=== PATIENT | female | born 1960 | race Caucasian/White ===

== ENCOUNTER 2020-05-15 21:30 | Outpatient (REF) | payer MEDICAID, SELFPAY ==
[2020-05-15 22:25] LABS: ALT 24 U/L (14-59); AST 20 U/L (15-37); Albumin 3.9 g/dL (3.4-5.0); Alkaline Phosphatase 64 U/L (46-116); Anion Gap 5.9 mmol/L (3-11); BUN 13 mg/dL (7-18); Bilirubin, Total 1.2 mg/dL (0.2-1.0); CO2 30.1 mmol/L (21.0-32.0); CREATININE 0.81 mg/dL (0.55-1.02); Calcium 9.1 mg/dL (8.5-10.1); Calculated LDL 110 mg/dL (<100); Chloride 104 mmol/L (98-107); Cholesterol 205 mg/dL (<200); Glucose 89 mg/dL (74-106); HDL Cholesterol 73 mg/dL (40-60); Potassium 4.2 mmol/L (3.5-5.1); Sodium 140 mmol/L (136-145); Total Protein 8.3 g/dL (6.4-8.2); Triglyceride 111 mg/dL (<150)
== END 2020-05-15 21:50 ==
LOC: NCHCN 21:30
PROVIDERS: Visit Provider Nurse Practitioner Family
DX: Z13.220 Encounter for screening for lipoid disorders (principal); Z13.228 Encounter for screening for other metabolic disorders; Z86.19 Personal history of other infectious and parasitic diseases; Z87.892 Personal history of anaphylaxis
CPT/HCPCS: 80053; 80061

== ENCOUNTER 2023-05-05 12:39 | Outpatient (REF) | payer MEDICAID, SELFPAY ==
--- NOTE | 2023-05-05 11:30 | PAPFT_PTH ---
PATIENT: Edilma Chun LOC: [facility] WITH [facility]#:[id number] AGE/SX: 62/F ROOM: RE05/05/[address]: Jacey Taylor : 1960 BED: DIS: 05/05/2023 SPEC #: [id number] RECD: 05/06/23 13:00 STATUS: GERALD REJose David #: [id number] RUDI: 05/05/23 11:[address]: Jacey Taylor DEPT: [facility] [place] Cytology RECD BY: Mariposa Floyd Tissues: 1 - CX/ENDOCX FOR PAP SMEARS Procedures: PAP THIN PREP/UVM Screening HPV DNA PROBE Comments: [id number]
== END 2023-05-05 12:40 | disposition home or self-care (01) ==
LOC: NCHCN 12:39
PROVIDERS: PCP Nurse Practitioner Family; Visit Provider Nurse Practitioner Family
DX: Z12.4 Encounter for screening for malignant neoplasm of cervix (principal); Z11.51 Encounter for screening for human papillomavirus (HPV)
CPT/HCPCS: 88142; 87624

== ENCOUNTER 2024-03-21 10:06 | Outpatient (REF) | payer MEDICARE, MEDICAID, SELFPAY ==
--- OUTSIDE RECORDS SUMMARY | 2024-03-21 10:09 | XMS_ITS ---
Author Name Unknown Address [address], [place] [phone] Phone Organization Unknown Address [address] [place] [phone] Phone Care Team Providers Care Network Strategist Name Role Phone DEDE Stark Attending Unavailable SONIA Smith Primary Unavailable Social History Type Status Start Date End Date Code Code Syst em Smoking History Never smoker (Never Smoked) 947741821 SNOMED CT Sex Female Hospital Discharge Instructions Should you have any questions prior to discharge, please contact a member of your healthcare team. If you have left the hospital and have any questions, please contact your primary care physician. Reason For Referral No Data Found Allergies and Adverse Reactions Allergy Substance Reaction Severity Start Date Concern Status Co de Code System No Known Drug Allergies Active 788352490 SNOMED-CT Plan of Treatment LAB DRAW 15MIN 05/18/2023 BONE DENSITY DEXA SPINE & HIP 3 US EXTREMITY 05/18/2023 MRI LOWER EXT JOINT W/O CONTRAST 2022 Encounters Encounter Diagnosis Start Date Code Code Sys tem Derangement of meniscus of right knee joint 04/28/2023 [id number] SNOMED-CT Personal Care Team Section Performer Name Performer Role Active Date Inactive Da te
--- OUTSIDE RECORDS SUMMARY | 2024-03-21 10:09 | XMS_ITS ---
Author Name Unknown Address [address] [place], [place] [phone] Phone Organization Unknown Address [address] [place] [phone] Phone Care Team Providers Care Ethylene Plant Helper Name Role Phone DEDE Stark Attending Unavailable SONIA Smith Primary Unavailable Results XR KNEE 3V RT* - Completed: 04/01/2023 10:41 LOINC: [An error prevented this con tent from loading. This incident has been logged.] Social History Type Status Start Date End Date Code Code Syst em Smoking History Never smoker (Never Smoked) 564707485 SNOMED CT Sex Female Hospital Discharge Instructions [...] Code System No Known Drug Allergies Active 278488192 SNOMED-CT Plan of Treatment LAB DRAW 15MIN 05/18/2023 BONE DENSITY DEXA SPINE & HIP 3 US EXTREMITY 05/18/2023 MRI LOWER EXT JOINT W/O CONTRAST 2022 Encounters Encounter Diagnosis Start Date Code Code Sys tem 04/01/2023 [id number] SNOMED-CT Personal Care Team Section Performer Name Performer Role Active Date Inactive Naresh pantoja
--- OUTSIDE RECORDS SUMMARY | 2024-03-21 10:09 | XMS_ITS ---
Author Name Unknown Address [address] [place], [place] [phone] Phone Organization Unknown Address [address] [place] [phone] Phone Care Team Providers Care Toaster Operator Name Role Phone BRENNEN Castillo Attending Unavailable SONIA Smith Primary Unavailable Results MR LOWER EXT ANY JOINT RT WO CONTRAST - Completed: 03/13/2023 12:06 LOINC: [An error prevented this con tent from loading. This incident has been logged.] Social History Type Status Start Date End Date Code Code Syst em Smoking History Never smoker (Never Smoked) 876021485 SNOMED CT Sex Female Hospital Discharge Instructions [...] Code System No Known Drug Allergies Active 789068954 SNOMED-CT Plan of Treatment LAB DRAW 15MIN 05/18/2023 BONE DENSITY DEXA SPINE & HIP 3 US EXTREMITY 05/18/2023 MRI LOWER EXT JOINT W/O CONTRAST 2022 Encounters Encounter Diagnosis Start Date Code Code Sys tem Derangement of posterior hor n of medial meniscus of right knee 03/13/2023 [id number] SNOMED-CT Personal Care Team Section Performer Name Performer Role Active Date Inactive Da te
--- OUTSIDE RECORDS SUMMARY | 2024-03-21 10:10 | XMS_ITS ---
Author Name Unknown Address [address] [place] [phone] Phone Organization Unknown Address [address] [place] [phone] Phone Care Team Providers Care Marble Helper Name Role Phone SONIA Smith Attending Unavailable Results SGOT (AST) - Collect Date/Ti me: 05/18/2023 14:36 [facility] ID: [id number] [address] [place] [address], [address] LOINC: 1920-8 Test Value Unit Reference Range Code Code System Flag SGOT (AST) 20 U/L L=15 H=37 1920-8 LOINC SGPT (ALT) - Collect Date/Ti me: 05/18/2023 14:36 [facility] ID: [id number] [address] [place] [address], [address] LOINC: 1742-6 Test Value Unit Reference Range Code Code System Flag SGPT (ALT) 22 U/L L=12 H=78 1742-6 LOINC BILIRUBIN TOTAL (ADULT)* - C ollect Date/Time: 05/18/2023 14:36 [facility] ID: [id number] [address] [place] [address], [address] LOINC: 1974- Test Value Unit Reference Range Code Code System Flag BILIRUBIN TOTAL 0.8 mg/dL L=0.0 H=1.3 1974- LOINC LEAD WHOLE BLOOD* - Collect Date/Time: 05/18/2023 14:36 [facility] ID: [id number] [address] [place], [place], [id number] LOINC: 30407-1 Test Value Unit Reference Range Code Code System Flag Lead 2.5 <2.0 H MERCURY WHOLE BLOOD QUANTITA TIVE* - Collect Date/Time: 05/18/2023 14:36 [facility] ID: [id number] [address] [place], [place], [id number] LOINC: 5685-3 Test Value Unit Reference Range Code Code System Flag Mercury, B 2 <10 5685-3 LOINC BILIRUBIN DIRECT* - Collect Date/Time: 05/18/2023 14:36 [facility] ID: [id number] [address] [place] [address], [address] LOINC: 1971-1 Test Value Unit Reference Range Code Code System Flag BILIRUBIN DIRECT 0.10 mg/dL L=0.00 H=0.50 1971- LOINC Social History Type Status Start Date End Date Code Code Syst em Smoking History Never smoker (Never Smoked) 975861281 SNOMED CT Sex Female Hospital Discharge Instructions [...] Code System No Known Drug Allergies Active 420957585 SNOMED-CT Plan of Treatment LAB DRAW 15MIN 05/18/2023 BONE DENSITY DEXA SPINE & HIP 3 US EXTREMITY 05/18/2023 MRI LOWER EXT JOINT W/O CONTRAST 2022 Encounters Encounter Diagnosis Start Date Code Code Sys tem Contact with and (suspected) exposure to lead 05/18/20 23 SNOMED-CT Personal Care Team Section Performer Name Performer Role Active Date Inactive Da te
--- OUTSIDE RECORDS SUMMARY | 2024-03-21 10:10 | XMS_ITS ---
Author Name Unknown Address [address] [place], [place] [phone] Phone Organization Unknown Address [address] [place] [phone] Phone Care Team Providers Care Woodwork Salvage Inspector Name Role Phone DEDE Stark Attending Unavailable SONIA Smith Primary Unavailable Results US EXTREMITY COMPLETE NONVAS CULAR - Completed: 05/18/2023 15:11 LOINC: [An error prevented this con tent from loading. This incident has been logged.] Social History Type Status Start Date End Date Code Code Syst em Smoking History Never smoker (Never Smoked) 280048969 SNOMED CT Sex Female Hospital Discharge Instructions [...] Code System No Known Drug Allergies Active 990773710 SNOMED-CT Plan of Treatment LAB DRAW 15MIN 05/18/2023 BONE DENSITY DEXA SPINE & HIP 3 US EXTREMITY 05/18/2023 MRI LOWER EXT JOINT W/O CONTRAST 2022 Encounters Encounter Diagnosis Start Date Code Code Sys tem Synovial cyst of popliteal space [[place]], right knee 0 05/18/2023 SNOMED-CT Personal Care Team Section Performer Name Performer Role Active Date Inactive Da te
--- OUTSIDE RECORDS SUMMARY | 2024-03-21 10:10 | XMS_ITS ---
Author Name Unknown Address [address] [place], [place] [phone] Phone Organization Unknown Address [address] [place] [phone] Phone Care Team Providers Care Boiler/Chiller Technician Name Role Phone SIMRAN Hartman Attending Unavailable SONIA Smith Primary Unavailable Social History Type Status Start Date End Date Code Code Syst em Smoking History Never smoker (Never Smoked) 201659062 SNOMED CT Sex Female Hospital Discharge Instructions [...] Code System No Known Drug Allergies Active 538029812 SNOMED-CT Plan of Treatment LAB DRAW 15MIN 05/18/2023 BONE DENSITY DEXA SPINE & HIP 3 US EXTREMITY 05/18/2023 MRI LOWER EXT JOINT W/O CONTRAST 2022 Encounters Encounter Diagnosis Start Date Code Code Sys tem Rupture of anterior cruciate ligament 05/19/2023 239 103866 SNOMED-CT Personal Care Team Section Performer Name Performer Role Active Date Inactive Da te
--- OUTSIDE RECORDS SUMMARY | 2024-03-21 10:11 | XMS_ITS ---
Author Name Unknown Address [address] [place], [place] [phone] Phone Organization Unknown Address [address] [place] [phone] Phone Care Team Providers Care Museum Exhibit Designer Name Role Phone BRENNEN Castillo Attending Unavailable SONIA Smith Primary Unavailable Results BD DXA BONE DENSITY HIP AND SPINE - Completed: 06/17/2023 12:20 LOINC: [An error prevented this con tent from loading. This incident has been logged.] Social History Type Status Start Date End Date Code Code Syst em Smoking History Never smoker (Never Smoked) 253757602 SNOMED CT Sex Female Hospital Discharge Instructions [...] Code System No Known Drug Allergies Active 624482701 SNOMED-CT Plan of Treatment LAB DRAW 15MIN 05/18/2023 BONE DENSITY DEXA SPINE & HIP 3 US EXTREMITY 05/18/2023 MRI LOWER EXT JOINT W/O CONTRAST 2022 Encounters Encounter Diagnosis Start Date Code Code Sys tem Encounter for screening for osteoporosis 06/17/2023 SNOMED-CT Personal Care Team Section Performer Name Performer Role Active Date Inactive Da kit
--- OUTSIDE RECORDS SUMMARY | 2024-03-21 10:11 | XMS_ITS ---
Author Name Unknown Address [address] [place], [place] [phone] Phone Organization Unknown Address [address] [place] [phone] Phone Care Team Providers Care Railway Patrol Officer Name Role Phone SIMRAN Hartman Attending Unavailable MELINA Bower CRNA Unavailable ZANE Stark Physician Photographic Equipment Inspector Bernie Smith Primary Unavailable Social History Type Status Start Date End Date Code Code Syst em Smoking History Never smoker (Never Smoked) 530175537 SNOMED CT Sex Female Vital Signs Vital Sign Value Unit Powell Value Powell Unit Date/Time Recent/Initial? Code Code System Body Mass Index 22.59 kg/m2 05/26/2023 11:50 Initial 87688 -5 LOINC Systolic Blood Pressure 129 mm[Hg] 05/27/2023 11:26 Initial 8480- 6 LOINC Diastolic Blood Pressure 82 mm[Hg] 05/27/2023 11:26 Initial 8462- 4 LOINC Body Surface Area 1.73 m2 05/26/2023 11:50 Initial 3140- 1 LOINC Height 168.275 0 cm 66.25 in 05/26/2023 11:50 Initial 8302- 2 LOINC O2 Saturation 98 % 2022 11:26 Initial 54742 -5 LOINC Pulse 56.0 /min 05/27/2023 11:26 Initial 8867- 4 LOINC Respiration 11 /min 05/27/20 11:26 Initial 9279- 1 LOINC Temperature 36.0 Estela 96.8 F 05/27/20 11:26 Initial 8310- 5 LOINC Weight 63.96 kg 141.00 lbs 05/26/2023 11:50 Initial 78053 -7 [facility] Hospital Discharge Instructions Should you have any questions prior to discharge, please contact a member of your healthcare team. If you have left the hospital and have any questions, please contact your primary care physician. Reason For Referral No Data Found Procedures Procedure Name Date Status Code Code Simonee m Arthrs Knee w/Meniscectomy Med&Lat w/Shaving 05/27/2023 co mpleted 84594 CPT Anesthesia, Open/Surg Arthro scopic Proc, Knee Joint; NOS 05/27/2023 completed 56608 CPT Allergies and Adverse Reactions Allergy Substance Reaction Severity Start Date Concern Status Co de Code System No Known Drug Allergies Active 732898647 SNOMED-CT Plan of Treatment LAB DRAW 15MIN 05/18/2023 BONE DENSITY DEXA SPINE & HIP 3 US EXTREMITY 05/18/2023 MRI LOWER EXT JOINT W/O CONTRAST 2022 Encounters Encounter Diagnosis Start Date Code Code Sys tem Other tear of medial meniscu s, current injury, right knee, initial encounter 05/27/2023 SNOMED-CT Personal Care Team Section Performer Name Performer Role Active Date Inactive Da kit
--- OUTSIDE RECORDS SUMMARY | 2024-03-21 10:11 | XMS_ITS ---
Author Name Unknown Address [address] [place], [place] [phone] Phone Organization Unknown Address [address] [place] [phone] Phone Care Team Providers Care Head Doffer Name Role Phone SIMRAN Hartman Attending Unavailable Social History Type Status Start Date End Date Code Code Syst em Smoking History Never smoker (Never Smoked) 740711057 SNOMED CT Sex Female Hospital Discharge Instructions Should you have any questions prior to discharge, please contact a member of your healthcare team. If you have left the hospital and have any questions, please contact your primary care physician. Reason For Referral No Data Found Procedures Procedure Name Date Status Code Code Syste m Arthrs Knee w/Meniscectomy Med&Lat w/Shaving 05/27/2023 co mpleted 48703 CPT Allergies and Adverse Reactions Allergy Substance Reaction Severity Start Date Concern Status Co de Code System No Known Drug Allergies Active 771679151 SNOMED-CT Plan of Treatment LAB DRAW 15MIN [...]
--- OUTSIDE RECORDS SUMMARY | 2024-03-21 10:11 | XMS_ITS ---
Author Name Unknown Address [address] [place], [place] [phone] Phone Organization Unknown Address [address] [place] [phone] Phone Care Team Providers Care Woodworker Helper Name Role Phone SIMRAN Hartman Attending Unavailable SONIA Smith Primary Unavailable Social History Type Status Start Date End Date Code Code Syst em Smoking History Never smoker (Never Smoked) 910811154 SNOMED CT Sex Female Hospital Discharge Instructions [...] Code System No Known Drug Allergies Active 700411375 SNOMED-CT Plan of Treatment LAB DRAW 15MIN 05/18/2023 BONE DENSITY DEXA SPINE & HIP 3 US EXTREMITY 05/18/2023 MRI LOWER EXT JOINT W/O CONTRAST 2022 Encounters Encounter Diagnosis Start Date Code Code Sys tem 06/30/2023 [id number] SNOMED-CT Personal Care Team Section Performer Name Performer Role Active Date Inactive Da te
--- OUTSIDE RECORDS SUMMARY | 2024-03-21 10:12 | XMS_ITS | Continuity of Care Document ---
Author Name Unknown Organization [facility] Address [address] [place] [address] Care Team Providers Care Sheet Metal Technician Name Role Phone Jacey Taylor Primary Care Physician [phone] Encounter [facility] Date(s): 02/28/23 - 02/28/[address] [address] Discharge Disposition: Home or Self Care Attending Physician: Ivan Pedroza MD Admitting Physician: Ivan Pedroza MD Allergies, Adverse Reactions, Alerts No Known Medication Allergies Assessment and Plan Extracted from: Title:Clinical Document Author:Donnie Luis Date:02/28/23 Diagnosis: Ankle injury - Mi nor Comment: Diagnosis: Knee injury - Minor Comment: Functional Status 02/28/23 Family Member Travel History No recent t ravel Recent Travel History No recent travel Other exposure to Infectious Disease Non e Vital Signs Most recent to oldest [Reference Range]: 1 Temperature Temporal Artery [36-38 Deg C ] 36.8 Deg C (02/28/23 4:03 PM) Peripheral Pulse Rate [60-100 bpm] 73 bp m (02/28/23 4:03 PM) Respiratory Rate [12-24 br/min] 18 br/mi n (02/28/23 4:03 PM) Blood Pressure [90-140/60-90 mmHg] 143/8 5mmHg *HI* (02/28/23 4:03 PM) Weight Dosing 64.00 kg (02/28/23 4:11 PM) Weight Estimated 64.00 kg (02/28/23 4:03 PM) Height/Length Dosing 170.000 cm (02/28/23 4:11 PM) Height/Length Estimated 170.000 cm (02/28/23 4:03 PM) Social History Social History Type Response Tobacco Never tobacco user T obacco Use:. Sex Hospital Discharge Instructions Patient Education 02/28/2023 16:35:46 Meniscus Tear, Phase I Rehab Meniscus Tear, Phase I Rehab Ask your health care provider which exercises are safe for you. Do exercises exactly as told by your health care provider and adjust them as directed. It is normal to feel mild stretching, pulling, tightness, or discomfort as you do these exercises. Stop right away if you feel sudden pain or your pain gets worse. Do not begin these exercises until told by your health care provider. Stretching and hvlgl-jl-skxazt exercises These exercises warm up your muscles and joints and improve the movement and flexibility of your knee. These exercises also help to relieve pain and stiffness. Active knee flexion, supine 1. Lie on your back (supine position) with both knees straight. If this causes back discomfort, bend your uninjured knee so your foot is flat on the floor. 2. Slowly slide your left / right heel toward your buttocks (active) until you feel a gentle stretch in the front of your knee or thigh (flexion). Stop if you have pain. 3. Hold this position for seconds. 4. Slowly slide your left / right heel back to the starting position. Repeat times. Complete this exercise times a day. Passive knee extension, sitting 1. Sit with your left / right heel propped up on a chair, a coffee table, or a footstool. Do not have anything under your knee to support it. 2. Without using any effort (passive), allow your leg muscles to relax, letting gravity straighten out your knee (extension). Do not let your knee turn inward. You should feel a stretch behind your left / right knee. 3. If told by your health care provider, deepen the stretch by placing a lb / kg weight on your thigh, just above your kneecap. 4. Hold this position for seconds. Repeat times. Complete this exercise times a day. Strengthening exercises These exercises build strength and endurance in your knee. Endurance is the ability to use your muscles for a long time, even after they get tired. Quadriceps, isometric 1. Lie on your back with your left / right leg extended and your other knee bent. Put a rolled towel or a small pillow under your left / right knee if told by your health care provider. 2. Without moving your knee joint (isometric), slowly tense the muscles in the front of your left /right thigh (quadriceps). You should see your kneecap slide up toward your hip or see increased dimpling just above the knee. This motion will push the back of your knee toward the floor. 3. For seconds, hold the muscle as tight as you can without increasing your pain. 4. Relax the muscles slowly and completely. Repeat times. Complete this exercise times a day. Straight leg raises, supine This exercise strengthens the muscles in the front of your thigh (quadriceps). 1. Lie on your back (supine position) with your left / right leg extended and your other knee bent. 2. Tense the muscles in the front of your left / right thigh. You should see your kneecap slide up toward your hip or see increased dimpling just above the knee. 3. Keep these muscles tight as you raise your leg 4???6 inches (10???15 cm) off the floor. Do not let your knee bend. 4. Hold this position for seconds. 5. Keep these muscles tense as you lower your leg. 6. Relax the muscles slowly and completely after each repetition. Repeat times. Complete this exercise times a day. Hamstring curls 1. On the floor or a bed, lie on your abdomen with your legs straight. Put a folded towel or a small pillow under your left / right thigh, just above your kneecap. 2. Slowly bend your left / right knee as far as you can without pain. Keep your hips flat against the floor or bed. 3. Hold this position for seconds. 4. Slowly lower your leg to the starting position. Repeat times. Complete this exercise times a day. This information is not intended to replace advice given to you by your health care provider. Make sure you discuss any questions you have with your health care provider. Document Revised: 01/21/2021 Document Reviewed: 01/21/2021 [employer] Patient Education ?? 2021 [employer] 02/28/2023 16:35:41 Meniscus Tear Meniscus Tear A meniscus tear is a knee injury that happens when a piece of the meniscus is torn. The meniscus ed thick, rubbery, wedge-shaped piece of cartilage in the knee. Each knee has two menisci sitting between the upper bone (femur) and lower bone (tibia) that form the knee joint. Each meniscus acts as a shock absorber for the knee. A torn meniscus is a common knee injury, ranging from mild to severe. Surgery may be needed to repair a severe tear. What are the causes? This condition may be caused by kneeling, squatting, twisting, or pivoting movements. Sports-related injuries are the most common cause, often resulting from: ??? Running and stopping suddenly. ??? Changing direction. ??? Being tackled or knocked off your feet. ??? Lifting or carrying heavy weights. As people get older, their menisci get thinner and weaker. Tears can happen more easily in older people, for example, when climbing stairs. What increases the risk? You are more likely to develop this condition if you: ??? Play contact sports. ??? Have a job that requires kneeling or squatting. ??? Are male. ??? Are over 40 years old. What are the signs or symptoms? Symptoms of this condition include: ??? Knee pain, especially at the side of the knee joint. You may feel pain immediately after injury, or hear a pop and feel pain later. ??? A feeling that your knee is clicking, catching, locking, or giving way (weakness, instability). ??? Not being able to fully bend or extend your knee. ??? Bruising or swelling in your knee. How is this diagnosed? This condition may be diagnosed based on your symptoms and a physical exam. You may also have tests, such as: ??? X-rays. ??? MRI. ??? Arthroscopy. This is a procedure to look inside your knee with a narrow surgical telescope. You may be referred to a knee specialist (orthopedic surgeon). How is this treated? Treatment for this injury depends on the severity of the tear. Treatment for a mild tear may include: ??? Rest. ??? Medicine to reduce pain and swelling, usually a nonsteroidal anti- inflammatory drug (NSAID), like ibuprofen. ??? A knee brace, sleeve, or wrap. ??? Using crutches or a walker to keep weight off your knee and help with walking. ??? Exercises to strengthen your knee (physical therapy). You may need surgery if you have a severe tear or if other treatments fail. Follow these instructions at home: If you have a brace, sleeve, or wrap: ??? Wear it, as told by your health care provider. Remove it, only as told by your health care provider. ??? Loosen the brace, sleeve, or wrap if your toes tingle, become numb, or turn cold and blue. ??? Keep the brace, sleeve, or wrap clean. ??? If the brace, sleeve, or wrap is not waterproof: ??? Do not let it get wet. ??? Cover it with a watertight covering when you take a bath or shower. Managing pain, stiffness, and swelling ??? Take uznm-ihx-evbwyeu and prescription medicines only as told by your health care provider. ??? If directed, put ice on your knee. To do this: ??? If you have a removable brace, sleeve, or wrap, remove it as told by your health care provider. ??? Put ice in a plastic bag. ??? Place a towel between your skin and the bag. ??? Leave the ice on for 20 minutes, 2???3 times per day. ??? Remove the ice if your skin turns bright red. This is very important. If you cannot feel pain, heat, or cold, you have a greater risk of damage to the area. ??? Move your toes often to reduce stiffness and swelling. ??? Raise (elevate) the injured area above the level of your heart while you are sitting or lying down. Activity ??? Do not use the injured limb to support your body weight until your health care provider says that you can. Use crutches or a walker as told by your health care provider. ??? Return to your normal activities as told by your health care provider. Ask your health care provider what activities are safe for you. ??? Perform ddlbd-zd-iudghe exercises only as told by your health care provider. ??? Begin doing exercises to strengthen your knee and leg muscles only as told by your health care provider. After you recover, your health care provider may recommend these exercises to help preventanother injury. General instructions ??? Use a knee brace, sleeve, or wrap as told by your health care provider. ??? Ask your health care provider when it is safe to drive if you have a brace, sleeve, or wrap on your knee. ??? Do not use any products that contain nicotine or tobacco, such as cigarettes, e-cigarettes, andchewing tobacco. If you need help quitting, ask your health care provider. ??? Ask your health care provider if the medicine prescribed to you: ??? Requires you to avoid driving or using heavy machinery. ??? Can cause constipation. You may need to take these actions to prevent or treat constipation: ??? Drink enough fluid to keep your urine pale yellow. ??? Take zxcb-ahz-gynnlpy or prescription medicines. ??? Eat foods that are high in fiber, such as beans, whole grains, and fresh fruits and vegetables. ??? Limit foods that are high in fat and processed sugars, such as fried or sweet foods. ??? Keep all follow-up visits. This is important. Contact a health care provider if: ??? You have a fever. ??? Your knee becomes red, tender, or swollen. ??? Your pain medicine is not controlling your pain. ??? Your symptoms get worse or do not improve after 2 weeks of home care. Summary ??? A meniscus tear is a knee injury that happens when a piece of the meniscus is torn. ??? Treatment for this injury depends on the severity of the tear. You may need surgery if you havea severe tear or if other treatments fail. ??? Rest, ice, and raise (elevate) your injured knee, as told by your health care provider. This will help lessen pain and swelling. ??? Contact a health care provider if you have new symptoms, your symptoms worsen, or they do not improve after 2 weeks of home care. ??? Keep all follow-up visits. This is important. This information is not intended to replace advice given to you by your health care provider. Make sure you discuss any questions you have with your health care provider. Document Revised: 01/31/2021 Document Reviewed: 01/31/2021 [employer] Patient Education ?? 2021 [employer]. Physician Emergency department Note * Ivan Pedroza MD: PERFORM Event Display: ED Note Physician Authored Date: [id number] SOULEYMANE BILLINGSLEY :1960 Age:62 years Sex:Female Visit Date:02/28/2023 Primary Care Physician: Jacey Taylor NP Basic Information Time Seen: Ivan Pedroza MD / 02/28/2023 16:14 [place], Stood, fell and twisted with impact on rigtht knee heard big crunch. Limping into triage with right knee splinted, +flexion and extend poor weight. Painglobally around knee. Lateral pain over left ankle. History Of Present Illness: Presenting concern is knee injury.?? Patient was hiking and fell with injury to the left foot.?? She jumped up and then injured her right knee. ??She felt her knee give way.?? [place]using [place]. Review of Systems: Review of systems is negative for other injuries. Physical Exam Vitals & Measurements T:??36.8?C ??(Temporal Artery)?? HR:??73??(Peripheral)?? RR:??18?? BP:??143/85?? SpO2:??99%?? HT:??170.000??cm?? WT:??64.00??kg??(Estimated)?? Pain Score:??4?? Right knee has no ligamentous??tenderness.?? Knee is stable to stress in all dimensions.?? There isfocal tenderness behind the??fibula.?? There is mild knee effusion. Medical Decision Making: Complexity is low. ??Data complexity is low. ??Management risk are low.?? [facility] decision making 48310. Procedure No Qualifying Data Assessment/Plan Ordered: Crutches, 02/28/23 17:36:00 EDT, Stop date 02/28/23 17:36:00 EDT, 02/28/23 17:36:00 EDT Knee Immobilizer Application, 02/28/23 17:36:00 EDT, Stop date 02/28/23 17:36:00 EDT, 02/28/23 17:36:00 EDT Discharge diagnosis is meniscus injury. Patient Education Meniscus Tear, Phase I Rehab Meniscus Tear Problem List/Past Medical History Ongoing No qualifying data Historical No qualifying data Medication Administration Given ibuprofen, 600 mg, Oral Tylenol, 1000 mg, Oral Allergies No Known Medication Allergies Social History Electronic Cigarette/Vaping Electronic Cigarette Use: Never. Tobacco Never tobacco user Tobacco Use:. Electronically Signed on 02/28/23 05:37 PM Ivan Pedroza MD Emergency department Discharge instructions * Ivan Pedroza MD: PERFORM Event Display: ED Discharge Information Authored Date: [id number] SOULEYMANE BILLINGSLEY :1960 Age:62 years Sex:Female Visit Date:02/28/2023 Primary Care Physician: Jacey Taylor CHARGE HISTOTECHNOLOGIST Discharge Instructions We would like to thank you for allowing us to assist you with your healthcare needs. The following includes patient education materials and information regarding your injury/illness. Discharge Vitals Temperature??(Temporal Artery) 98.2 ??F (36.8 ??C) Heart Rate??(Peripheral) 73 Respiratory Rate?? 18 Blood Pressure?? 143/85?? Height?? 66.93 in (170.000 cm) Weight??(Estimated) 141.12 lb (64.00 kg) Allergies No Known Medication Allergies What to Do Next Instructions from Your Care Team You have an injury to??a cartilage??(meniscus)??in your??right knee.?? Apply ice is much as possible for the next??48 hours.?? Wear knee immobilizer when you are up.?? Use crutches??to minimize any weightbearing for the next 48 hours.?? You do not need to wear the immobilizer??in bed.?? After 2 days gradually increase activity??with some??minor weightbearing and increase as tolerated. ?? If failure to??have a??workable??knee that??allows you to go up and down stairs without discomfort??then follow-up with your primary care provider for consideration of??further imaging. ?? Ivan Pedroza MD You were treated today on an emergency basis; it may be hall to contact your primary care provider to notify them of your visit today. You may have been referred to your regular doctor or a specialist, please follow up as instructed. If your condition worsens or you can't get in to see the doctor, contact the Emergency Department. Education Materials Meniscus Tear, Phase I Rehab Ask your health care provider which exercises are safe for you. Do exercises exactly as told by your health care provider and adjust them as directed. It is normal to feel mild stretching, pulling, tightness, or discomfort as you do these exercises. Stop right away if you feel sudden pain or your pain gets worse. Do not begin these exercises until told by your health care provider. Stretching and rbpdh-dc-mulzsl exercises These exercises warm up your muscles and joints and improve the movement and flexibility of your knee. These exercises also help to relieve pain and stiffness. Active knee flexion, supine 1.?? Lie on your back (supine position) with both knees straight. If this causes back discomfort, bend your uninjured knee so your foot is flat on the floor. 2.?? Slowly slide your left / right heel toward your buttocks (active) until you feel a gentle stretch in the front of your knee or thigh (flexion). Stop if you have pain. 3.?? Hold this position for seconds. 4.?? Slowly slide your left / right heel back to the starting position. Repeat times. Complete this exercise times a day. Passive knee extension, sitting 1.?? Sit with your left / right heel propped up on a chair, a coffee table, or a footstool. Do not have anything under your knee to support it. 2.?? Without using any effort (passive), allow your leg muscles to relax, letting gravity straighten outyour knee (extension). Do not let your knee turn inward. You should feel a stretch behind your left/ right knee. 3.?? If told by your health care provider, deepen the stretch by placing a lb / kg weight on your thigh, just above your kneecap. 4.?? Hold this position for seconds. Repeat times. Complete this exercise times a day. Strengthening exercises These exercises build strength and endurance in your knee. Endurance is the ability to use your muscles for a long time, even after they get tired. Quadriceps, isometric 1.?? Lie on your back with your left / right leg extended and your other knee bent. Put a rolled towel or a small pillow under your left / right knee if told by your health care provider. 2.?? Without moving your knee joint (isometric), slowly tense the muscles in the front of your left / right thigh (quadriceps). You should see your kneecap slide up toward your hip or see increased dimpling just above the knee. This motion will push the back of your knee toward the floor. 3.?? For seconds, hold the muscle as tight as you can without increasing your pain. 4.?? Relax the muscles slowly and completely. Repeat times. Complete this exercise times a day. Straight leg raises, supine This exercise strengthens the muscles in the front of your thigh (quadriceps). 1.?? Lie on your back (supine position) with your left / right leg extended and your other knee bent. 2.?? Tense the muscles in the front of your left / right thigh. You should see your kneecap slide up toward your hip or see increased dimpling just above the knee. 3.?? Keep these muscles tight as you raise your leg 4???6 inches (10???15 cm) off the floor. Do not let your knee bend. 4.?? Hold this position for seconds. 5.?? Keep these muscles tense as you lower your leg. 6.?? Relax the muscles slowly and completely after each repetition. Repeat times. Complete this exercise times a day. Hamstring curls 1.?? On the floor or a bed, lie on your abdomen with your legs straight. Put a folded towel or a small pillow under your left / right thigh, just above your kneecap. 2.?? Slowly bend your left / right knee as far as you can without pain. Keep your hips flat against the floor or bed. 3.?? Hold this position for seconds. 4.?? Slowly lower your leg to the starting position. Repeat times. Complete this exercise times a day. This information is not intended to replace advice given to you by your health care provider. Make sure you discuss any questions you have with your health care provider. Document Revised: 01/21/2021 Document Reviewed: 01/21/2021 Else[employer] Patient Education ?? 2021 [employer] Meniscus Tear A meniscus tear is a knee injury that happens when a piece of the meniscus is torn. The meniscus ed thick, rubbery, wedge-shaped piece of cartilage in the knee. Each knee has two menisci sitting between the upper bone (femur) and lower bone (tibia) that form the knee joint. Each meniscus acts as a shock absorber for the knee. A torn meniscus is a common knee injury, ranging from mild to severe. Surgery may be needed to repair a severe tear. What are the causes? This condition may be caused by kneeling, squatting, twisting, or pivoting movements. Sports-related injuries are the most common cause, often resulting from: ? Running and stopping suddenly. ? Changing direction. ? Being tackled or knocked off your feet. ? Lifting or carrying heavy weights. As people get older, their menisci get thinner and weaker. Tears can happen more easily in older people, for example, when climbing stairs. What increases the risk? You are more likely to develop this condition if you: ? Play contact sports. ? Have a job that requires kneeling or squatting. ? Are male. ? Are over 40 years old. What are the signs or symptoms? Symptoms of this condition include: ? Knee pain, especially at the side of the knee joint. You may feel pain immediately after injury, orhear a pop and feel pain later. ? A feeling that your knee is clicking, catching, locking, or giving way (weakness, instability). ? Not being able to fully bend or extend your knee. ? Bruising or swelling in your knee. How is this diagnosed? This condition may be diagnosed based on your symptoms and a physical exam. You may also have tests, such as: ? X-rays. ? MRI. ? Arthroscopy. This is a procedure to look inside your knee with a narrow surgical telescope. You may be referred to a knee specialist (orthopedic surgeon). How is this treated? Treatment for this injury depends on the severity of the tear. Treatment for a mild tear may include: ? Rest. ? Medicine to reduce pain and swelling, usually a nonsteroidal anti-inflammatory drug (NSAID), like ibuprofen. ? A knee brace, sleeve, or wrap. ? Using crutches or a walker to keep weight off your knee and help with walking. ? Exercises to strengthen your knee (physical therapy). You may need surgery if you have a severe tear or if other treatments fail. Follow these instructions at home: If you have a brace, sleeve, or wrap: ? Wear it, as told by your health care provider. Remove it, only as told by your health care provider. ? Loosen the brace, sleeve, or wrap if your toes tingle, become numb, or turn cold and blue. ? Keep the brace, sleeve, or wrap clean. ? If the brace, sleeve, or wrap is not waterproof: ? Do not let it get wet. ? Cover it with a watertight covering when you take a bath or shower. Managing pain, stiffness, and swelling ? Take fewm-rhs-eedgxkp and prescription medicines only as told by your health care provider. ? If directed, put ice on your knee. To do this: ? If you have a removable brace, sleeve, or wrap, remove it as told by your health care provider. ? Put ice in a plastic bag. ? Place a towel between your skin and the bag. ? Leave the ice on for 20 minutes, 2???3 times per day. ? Remove the ice if your skin turns bright red. This is very important. If you cannot feel pain, heat, or cold, you have a greater risk of damage to the area. ? Move your toes often to reduce stiffness and swelling. ? Raise (elevate) the injured area above the level of your heart while you are sitting or lying down. Activity ? Do not use the injured limb to support your body weight until your health care provider says that you can. Use crutches or a walker as told by your health care provider. ? Return to your normal activities as told by your health care provider. Ask your health care provider what activities are safe for you. ? Perform cgsrf-ij-fbcmzh exercises only as told by your health care provider. ? Begin doing exercises to strengthen your knee and leg muscles only as told by your health care provider. After you recover, your health care provider may recommend these exercises to help prevent another injury. General instructions ? Use a knee brace, sleeve, or wrap as told by your health care provider. ? Ask your health care provider when it is safe to drive if you have a brace, sleeve, or wrap on yourknee. ? Do not use any products that contain nicotine or tobacco, such as cigarettes, e- cigarettes, and chewing tobacco. If you need help quitting, ask your health care provider. ? Ask your health care provider if the medicine prescribed to you: ? Requires you to avoid driving or using heavy machinery. ? Can cause constipation. You may need to take these actions to prevent or treat constipation: ? Drink enough fluid to keep your urine pale yellow. ? Take [id number] or prescription medicines. ? Eat foods that are high in fiber, such as beans, whole grains, and fresh fruits and vegetables. ? Limit foods that are high in fat and processed sugars, such as fried or sweet foods. ? Keep all follow-up visits. This is important. Contact a health care provider if: ? You have a fever. ? Your knee becomes red, tender, or swollen. ? Your pain medicine is not controlling your pain. ? Your symptoms get worse or do not improve after 2 weeks of home care. Summary ? A meniscus tear is a knee injury that happens when a piece of the meniscus is torn. ? Treatment for this injury depends on the severity of the tear. You may need surgery if you have a severe tear or if other treatments fail. ? Rest, ice, and raise (elevate) your injured knee, as told by your health care provider. This will help lessen pain and swelling. ? Contact a health care provider if you have new symptoms, your symptoms worsen, or they do not improve after 2 weeks of home care. ? Keep all follow-up visits. This is important. This information is not intended to replace advice given to you by your health care provider. Make sure you discuss any questions you have with your health care provider. Document Revised: 01/31/2021 Document Reviewed: 01/31/2021 [employer] Patient Education ?? 2021 [employer] Tests Performed Medications and Immunizations Administered Given ibuprofen, 600 mg, Oral Tylenol, 1000 mg, Oral Patient/Perfect Binder Setter Signature Patient Name:SOULEYMANE BILLINGSLEY I have received this information and my questions have been answered. Patient/Perfect Binder Setter Name: Patient/Perfect Binder Setter Signature: Relationship to Patient: Witness Name/Signature: Date: Electronically Signed on: 02/28/2023 17:37 EDTSigned by:[facility] Discharge summary * Donnie Luis: PERFORM Event Display: Discharge Note Authored Date: [id number] * Donnie Luis: PERFORM Event Display: Discharge Note Authored Date: [id number] Diagnosis: Ankle injury - Minor Comment: Diagnosis: Knee injury - Minor Comment: Electronically Signed on 02/28/23 05:49 PM Donnie Luis Patient Care team information Care Team Personnel Name: Jacey Taylor NP Position: No Access Member Role: Informed Provider Address: Address: [address] [place] [id number] [place] Name: Katlyn Cornejo Position: Nurse Member Role: ED Nurse Name: Ivan Pedroza MD Position: Physician Member Role: Admitting Physician Address: Address: [address] [place], [place] [phone] [place]
--- OUTSIDE RECORDS SUMMARY | 2024-03-21 10:12 | XMS_ITS ---
Author Name Unknown Address [address], [place] [phone] Phone Organization Unknown Address [address] [place] [phone] Phone Care Team Providers Care Export Traffic Department Manager Name Role Phone SIMRAN Hartman Attending Unavailable SONIA Smith Primary Unavailable Social History Type Status Start Date End Date Code Code Syst em Smoking History Never smoker (Never Smoked) 936643443 SNOMED CT Sex Female Hospital Discharge Instructions [...] Code System No Known Drug Allergies Active 143065832 SNOMED-CT Plan of Treatment LAB DRAW 15MIN 05/18/2023 BONE DENSITY DEXA SPINE & HIP 3 US EXTREMITY 05/18/2023 MRI LOWER EXT JOINT W/O CONTRAST 2022 Encounters Encounter Diagnosis Start Date Code Code Sys tem Postprocedural state finding 10/13/2023 [id number] SNOMED-CT Personal Care Team Section Performer Name Performer Role Active Date Inactive Da te
[2024-03-21 15:07] LABS: Abs Immature Grans 0.01 10^3/uL (0.0-0.06); Absolute Basophil Count 0.02 10^3/uL (0.0-0.2); Absolute Eosinophil Count 0.09 10^3/uL (0.0-0.7); Absolute Lymphocyte Count 2.37 10^3/uL (1.2-3.4); Absolute Monocyte Count 0.25 10^3/uL (0.1-0.8); Absolute Neutrophil Count 2.38 10^3/uL (1.2-6.7); Basophils % 0.4 %; Eosinophils % 1.8 %; HCT 40.4 % (36.0-46.0); HGB 12.9 g/dL (11.2-15.7); Immature Grans % 0.2 %; Lymphocytes % 46.3 %; MCH 28.6 pg (27.0-33.0); MCHC 31.9 % (32.0-36.0); MCV 90 fL (80-95); MPV 9.4 fL (8.0-11.0); Monocytes % 4.9 %; Neutrophils % 46.4 %; Platelet Count 278 10^3/uL (130-400); RBC 4.51 10^6/uL (3.93-5.22); RDW 12.8 % (11.7-14.6); RDW-SD 41.9 fL; WBC 5.12 10^3/uL (4.4-10.8)
[2024-03-21 15:39] LABS: ALT 27 U/L (14-59); AST 22 U/L (15-37); Albumin 3.6 g/dL (3.4-5.0); Alkaline Phosphatase 62 U/L (46-116); Anion Gap 4.8 mmol/L (3-11); BUN 22 mg/dL (7-18); CO2 30.2 mmol/L (21.0-32.0); CREATININE 0.9 mg/dL (0.55-1.02); Calcium 9.4 mg/dL (8.5-10.1); Chloride 104 mmol/L (98-107); Estimated GFR 70.95 (mL/min/1.73m2); Glucose 104 mg/dL (74-106); Potassium 5.1 mmol/L (3.5-5.1); Sodium 139 mmol/L (136-145); TSH (W/Ref FT4) 0.78 uIU/mL (0.36-3.74); Total Protein 8.6 g/dL (6.4-8.2)
== END 2024-03-21 10:07 | disposition home or self-care (01) ==
LOC: NCHCN 10:06
PROVIDERS: PCP Nurse Practitioner Family; Visit Provider Family Medicine
DX: R53.83 Other fatigue (principal)
CPT/HCPCS: 80053; 84443; 85025

== ENCOUNTER 2024-09-27 15:02 | Outpatient (REF) | payer MEDICARE, SELFPAY ==
[2024-09-27 18:02] LABS: HCT 35.3 % (36.0-46.0); HGB 11.6 g/dL (11.2-15.7); MCH 28.1 pg (27.0-33.0); MCHC 32.9 % (32.0-36.0); MCV 86 fL (80-95); MPV 8.7 fL (8.0-11.0); Platelet Count 354 10^3/uL (130-400); RBC 4.13 10^6/uL (3.93-5.22); RDW 12.9 % (11.7-14.6); RDW-SD 40.3 fL; WBC 6.18 10^3/uL (4.4-10.8)
[2024-09-27 18:30] LABS: ALT 28 U/L (14-59); AST 28 U/L (15-37); Albumin 3.1 g/dL (3.4-5.0); Alkaline Phosphatase 72 U/L (46-116); Anion Gap 5.2 mmol/L (3-11); BUN 15 mg/dL (7-18); Bilirubin, Total 1.11 mg/dL (0.2-1.0); CO2 26.8 mmol/L (21.0-32.0); CREATININE 1.1 mg/dL (0.55-1.02); Calcium 8.8 mg/dL (8.5-10.1); Chloride 102 mmol/L (98-107); Estimated GFR 55.42 (mL/min/1.73m2); Glucose 134 mg/dL (74-106); Potassium 3.9 mmol/L (3.5-5.1); Sodium 134 mmol/L (136-145); Total Protein 8.7 g/dL (6.4-8.2)
== END 2024-09-27 15:03 | disposition home or self-care (01) ==
LOC: NCHCN 15:02
PROVIDERS: PCP Nurse Practitioner Family; Visit Provider Family Medicine
DX: R53.83 Other fatigue (principal)
CPT/HCPCS: 80053; 85027

== ENCOUNTER 2024-09-29 14:09 | Outpatient (REF) | payer MEDICARE, SELFPAY ==
[2024-09-30 10:46] LABS: Campylobacter PCR Negative (Negative); Salmonella PCR Negative (Negative); Shiga Toxin PCR Negative (Negative); Shigella/Enteroinvasive Ecoli Negative (Negative)
== END 2024-09-29 14:10 | disposition home or self-care (01) ==
LOC: NCHCN 14:09
PROVIDERS: PCP Nurse Practitioner Family; Visit Provider Family Medicine
DX: R19.7 Diarrhea, unspecified (principal)
CPT/HCPCS: 87505; 87177

== ENCOUNTER 2024-09-30 14:57 | Outpatient (REF) | payer MEDICARE, SELFPAY ==
[2024-10-01 11:12] LABS: Campylobacter PCR Negative (Negative); Salmonella PCR Negative (Negative); Shiga Toxin PCR Negative (Negative); Shigella/Enteroinvasive Ecoli Negative (Negative)
[2024-10-03 14:42] LABS: Cryptosporidium, F Negative (Negative); Giardia Ag, F Negative (Negative)
== END 2024-09-30 14:58 | disposition home or self-care (01) ==
LOC: NCHCN 14:57
PROVIDERS: PCP Nurse Practitioner Family; Visit Provider Family Medicine
DX: R19.7 Diarrhea, unspecified (principal)
CPT/HCPCS: 87328; 87329; 87505; 87177

== ENCOUNTER 2024-12-08 12:30 | Outpatient (REF) | payer MEDICARE, SELFPAY ==
[2024-12-08 14:42] LABS: ALT 26 U/L (14-59); AST 29 U/L (15-37); Albumin 3.5 g/dL (3.4-5.0); Alkaline Phosphatase 68 U/L (46-116); Anion Gap 3.9 mmol/L (3-11); BUN 16 mg/dL (7-18); Bilirubin, Total 1.1 mg/dL (0.2-1.0); CO2 29.1 mmol/L (21.0-32.0); CREATININE 0.9 mg/dL (0.55-1.02); Calcium 9.3 mg/dL (8.5-10.1); Chloride 106 mmol/L (98-107); Estimated GFR 70.51 (mL/min/1.73m2); Glucose 88 mg/dL (74-106); Potassium 4.1 mmol/L (3.5-5.1); Sodium 139 mmol/L (136-145); Total Protein 8.7 g/dL (6.4-8.2)
== END 2024-12-08 12:31 | disposition home or self-care (01) ==
LOC: NCHCN 12:30
PROVIDERS: PCP Nurse Practitioner Family; Visit Provider Family Medicine
DX: R79.89 Other specified abnormal findings of blood chemistry (principal)
CPT/HCPCS: 80053